=== PATIENT | male | born 1965 | race Hispanic/Latino ===

== ENCOUNTER 2019-07-10 14:48 | Emergency (ER) | payer SELFPAY ==
[2019-07-10 14:55] VITALS: BP 114/75
== END 2019-07-10 15:30 | disposition left against medical advice (07) ==
LOC: ED 14:48
DX: L98.9 Disorder of the skin and subcutaneous tissue, unspecified (principal); Z53.21 Procedure and treatment not carried out due to patient leaving prior to being seen by health care provider

== ENCOUNTER 2019-07-11 06:24 | Emergency (ER) | payer MEDICARE ==
--- NOTE | 2019-07-11 09:11 | Emergency Department Report ---
- General Chief complaint: Extremity Problem,Nontraumatic Stated complaint: TOE PAIN Time Seen by Provider: 07/11/19 08:08 Source: patient Mode of arrival: Ambulatory Limitations: No Limitations - History of Present Illness Initial comments: 53-year-old male presents emerge department complaining of a 2-year history of progressively worsening waxing and waning left toe redness pain and wound. The wound has been swelling and having occasional pain which is been flared over the last week reports no fever chills or sweats no nausea no vomiting no trauma. He also been having some issues with rash and pruritus and due to his previous homeless situation which is now been remedied he is worried of another infestation as it does feel very similar reports no cough, no congestion, no shortness of breath. MD complaint: rash -: Gradual Tetanus Up to Date: yes Location: L foot Severity: mild Quality: dull Consistency: constant Improves with: none Worsens with: none Context: none Treatments Prior to Arrival: none - Related Data Previous Rx's Medication Instructions Recorded Last Taken Type Mupirocin [Bactroban 2%] 1 applic TP TID #1 tube 07/11/19 Unknown Rx Permethrin 5% [Acticin 5% CREAM] 1 applicatio TP ONCE #60 tube 07/11/19 Unknown Rx Sulfamethoxazole/Trimethoprim 1 each PO BID #20 tablet 07/11/19 Unknown Rx [Bactrim DS TAB] Allergies Allergy/AdvReac Type Severity Reaction Status Date / Time latex Allergy Rash Verified 07/10/19 14:52 Abscess Boil HPI - HPI Chief Complaint: Extremity Problem,Nontraumatic Stated Complaint: TOE PAIN Time Seen by Provider: 07/11/19 08:08 Home Medications: Previous Rx's Medication Instructions Recorded Last Taken Type Mupirocin [Bactroban 2%] 1 applic TP TID #1 tube 07/11/19 Unknown Rx Permethrin 5% [Acticin 5% CREAM] 1 applicatio TP ONCE #60 tube 07/11/19 Unknown Rx Sulfamethoxazole/Trimethoprim 1 each PO BID #20 tablet 07/11/19 Unknown Rx [Bactrim DS TAB] Allergies/Adverse Reactions: Allergies Allergy/AdvReac Type Severity Reaction Status Date / Time latex Allergy Rash Verified 07/10/19 14:52 ED Review of Systems ROS: Stated complaint: TOE PAIN Other details as noted in HPI Comment: All other systems reviewed and negative ED Past Medical Hx - Past Medical History Previous Medical History?: No Hx Seizures: Yes (last seizure 06/28/19) Additional medical history: hep C. lupus. hypothyroidism - Surgical History Past Surgical History?: No - Social History Smoking Status: Current Every Day Smoker Substance Use Type: Alcohol - Medications Home Medications: Home Medications Medication Instructions Recorded Confirmed Last Taken Type Mupirocin [Bactroban 2%] 1 applic TP TID #1 tube 07/11/19 Unknown Rx Permethrin 5% [Acticin 5% CREAM] 1 applicatio TP ONCE #60 tube 07/11/19 Unknown Rx Sulfamethoxazole/Trimethoprim 1 each PO BID #20 tablet 07/11/19 Unknown Rx [Bactrim DS TAB] ED Physical Exam - General Limitations: No Limitations - Extremities Exam Extremities exam: Present: tenderness, normal capillary refill. Absent: pedal edema, joint swelling - Expanded Lower Extremity Exam Left 1 - Partial ulcerative and scabbed wound with surrounding cellulitis 2 - Some cellulitis is located to this region with some mild swelling and wound is present 1.5 cm no induration is noted. No lymphangitis. Pulses are 2+ capillary refills are brisk. - Neurological Exam Neurological exam: Present: CN II-XII intact, normal gait ED Course Vital Signs 07/11/19 06:30 Temperature 97.8 F Pulse Rate 79 Respiratory 18 Rate Blood Pressure 116/77 O2 Sat by Pulse 100 Oximetry Critical care attestation.: If time is entered above; I have spent that time in minutes in the direct care of this critically ill patient, excluding procedure time. ED Disposition Clinical Impression: Rash, Cellulitis, toe Disposition: DC-01 TO HOME OR SELFCARE Is pt being admited?: No Does the pt Need Aspirin: No Condition: Stable Instructions: Cellulitis (ED), Scabies (ED) Additional Instructions: Please be sure to follow-up with the log chipper for reevaluation of your toe/foot evolve any infection. Scabies medication was provided per your request. Prescriptions: Permethrin 5% [Acticin 5% CREAM] 1 applicatio TP ONCE #60 tube Sulfamethoxazole/Trimethoprim [Bactrim DS TAB] 1 each PO BID #20 tablet Mupirocin [Bactroban 2%] 1 applic TP TID #1 tube Referrals: [facility] [Provider Group] - 3-5 Days PER العراقي DPM [Staff Physician] - 3-5 Days KIKE SELLERS MD [Staff Physician] - 3-5 Days
[2019-07-11 09:22] VITALS: BP 118/74
== END 2019-07-11 09:21 | disposition home or self-care (01) ==
LOC: ED 06:24
DX: L03.032 Cellulitis of left toe (principal); E03.9 Hypothyroidism, unspecified
CPT/HCPCS: 99282

== ENCOUNTER 2019-07-19 21:36 | Emergency (ER) | payer MEDICARE ==
[2019-07-19 22:22] LABS: Basophils # (Auto) 0.1 K/mm3 (0.0-0.1); Eosinophils # (Auto) 0.2 K/mm3 (0.0-0.4); Eosinophils % (Auto) 2.4 % (0.0-4.3); Hematocrit 42.4 % (35.5-45.6); Lymphocytes # (Auto) 2.3 K/mm3 (1.2-5.4); Lymphocytes % (Auto) 25.7 % (13.4-35.0); Mean Corpuscular HGB Conc 35 % (32-34); Mean Corpuscular Volume 95 fl (84-94); Monocytes # (Auto) 0.6 K/mm3 (0.0-0.8); Monocytes % (Auto) 6.7 % (0.0-7.3); Platelet Count 241 K/mm3 (140-440); Red Blood Count 4.49 M/mm3 (3.65-5.03); Red Cell Distribution Width 13.6 % (13.2-15.2)
[2019-07-19 22:30] LABS: BUN/Creatinine Ratio 20; Blood Urea Nitrogen 18 mg/dL (9-20); Calcium 9.4 mg/dL (8.4-10.2); Hemolysis Index 66
--- NOTE | 2019-07-19 22:53 | Emergency Department Report ---
HPI - HPI HPI: Room 14 The patient is a 53-year-old male present with a chief complaint of stress. Patient says he has "a lot of stuff when you down and I cannot function." Patient denies suicidal homicidal ideation. Patient denies auditory or visual hallucinations. Patient admits to intermittent abuse of methamphetamines and daily abuse of alcohol. Patient states he last consumed alcohol approximately 1 hour ago. Patient states he feels irritable has 0 tolerance. Patient states he was discharged from [place] 1.5 weeks ago <STACIE MORALEZ - Last Filed: 07/20/19 00:08> <MAURICIO MUJICA - Last Filed: 07/20/19 13:32> <DANTE SHEPARD - Last Filed: 07/20/19 15:06> - General Chief Complaint: Psych Time Seen by Provider: 07/19/19 22:35 ED Past Medical Hx - Past Medical History Hx Seizures: Yes (last seizure 06/28/19) Additional medical history: hep C. lupus. hypothyroidism - Surgical History Past Surgical History?: No - Family History Family history: no significant - Social History Smoking Status: Current Every Day Smoker (1 pack/day) Substance Use Type: Alcohol (Daily), Heroin, Marijuana, Methamphetamines <STACIE MORALEZ - Last Filed: 07/20/19 00:08> <MAURICIO MUJICA - Last Filed: 07/20/19 13:32> <DANTE SHEPARD - Last Filed: 07/20/19 15:06> - Medications Home Medications: Home Medications Medication Instructions Recorded Confirmed Last Taken Type Gabapentin [Neurontin] 300 mg PO QAM 07/20/19 07/20/19 Unknown History Gabapentin [Neurontin] 800 mg PO DAILY PRN 07/20/19 07/20/19 Unknown History Levothyroxine [Synthroid] 88 mcg PO QAM 07/20/19 07/20/19 Unknown History carBAMazepine [TEGretol] 200 mg PO DAILY 07/20/19 07/20/19 Unknown History ED Review of Systems ROS: Stated complaint: MH EVAL Other details as noted in HPI Constitutional: no symptoms reported Respiratory: no symptoms reported Endocrine: no symptoms reported Psychiatric: depression. denies: auditory hallucinations, visual hallucinations, homicidal thoughts, suicidal thoughts <GREGErickaSTACIE K - Last Filed: 07/20/19 00:08> ROS: Stated complaint: MH EVAL Other details as noted in HPI <MAURICIO MUJICA. - Last Filed: 07/20/19 13:32> ROS: Stated complaint: MH EVAL Other details as noted in HPI <DANTE SHEPARD CharlotteJoe - Last Filed: 07/20/19 15:06> Physical Exam - Physical Exam Vital Signs: Vital Signs 07/19/19 21:41 Temperature 97.4 F L Pulse Rate 98 H Respiratory 18 Rate Blood Pressure 124/72 O2 Sat by Pulse 98 Oximetry Physical Exam: GENERAL: The patient is well-developed well-nourished male sitting in chair aba earing emotionally distraught. [] HEENT: Normocephalic. Atraumatic. Extraocular motions are intact. Patient has moist mucous membranes. NECK: Supple. Trachea midline CHEST/LUNGS: Clear to auscultation. There is no respiratory distress noted. HEART/CARDIOVASCULAR: Regular. There is no tachycardia. There is no gallop rub or murmur. ABDOMEN: Abdomen is soft, nontender. Patient has normal bowel sounds. There is no abdominal distention. SKIN: There is no rash. There is no edema. There is no diaphoresis. NEURO: The patient is awake, alert, and oriented. The patient is cooperative. The patient has no focal neurologic deficits. The patient has normal speech MUSCULOSKELETAL: There is no evidence of acute injury. <GREGErickaSTACIE Aure - Last Filed: 07/20/19 00:08> - Physical Exam Vital Signs: Vital Signs 07/19/19 07/20/19 07/20/19 21:41 00:16 03:02 Temperature 97.4 F L 97.5 F L Pulse Rate 98 H 95 H Respiratory 18 20 18 Rate Blood Pressure 124/72 Blood Pressure 121/79 [Left] O2 Sat by Pulse 98 99 96 Oximetry 07/20/19 09:17 Temperature 97.5 F L Pulse Rate 87 Respiratory 20 Rate Blood Pressure Blood Pressure 110/72 [Left] O2 Sat by Pulse 98 Oximetry <MAURICIO MUJICA - Last Filed: 07/20/19 13:32> - Physical Exam Vital Signs: Vital Signs 07/19/19 07/20/19 07/20/19 21:41 00:16 03:02 Temperature 97.4 F L 97.5 F L Pulse Rate 98 H 95 H Respiratory 18 20 18 Rate Blood Pressure 124/72 Blood Pressure 121/79 [Left] O2 Sat by Pulse 98 99 96 Oximetry 07/20/19 07/20/19 09:17 13:51 Temperature 97.5 F L 97.7 F Pulse Rate 87 97 H Respiratory 20 18 Rate Blood Pressure Blood Pressure 110/72 109/64 [Left] O2 Sat by Pulse 98 99 Oximetry <DANTE SHEPARD - Last Filed: 07/20/19 15:06> ED Course Vital Signs 07/19/19 21:41 Temperature 97.4 F L Pulse Rate 98 H Respiratory 18 Rate Blood Pressure 124/72 O2 Sat by Pulse 98 Oximetry <STACIE MORALEZ - Last Filed: 07/20/19 00:08> Vital Signs 07/19/19 07/20/19 07/20/19 21:41 00:16 03:02 Temperature 97.4 F L 97.5 F L Pulse Rate 98 H 95 H Respiratory 18 20 18 Rate Blood Pressure 124/72 Blood Pressure 121/79 [Left] O2 Sat by Pulse 98 99 96 Oximetry 07/20/19 09:17 Temperature 97.5 F L Pulse Rate 87 Respiratory 20 Rate Blood Pressure Blood Pressure 110/72 [Left] O2 Sat by Pulse 98 Oximetry <MAURICIO MUJICA - Last Filed: 07/20/19 13:32> Vital Signs 07/19/19 07/20/19 07/20/19 21:41 00:16 03:02 Temperature 97.4 F L 97.5 F L Pulse Rate 98 H 95 H Respiratory 18 20 18 Rate Blood Pressure 124/72 Blood Pressure 121/79 [Left] O2 Sat by Pulse 98 99 96 Oximetry 07/20/19 07/20/19 09:17 13:51 Temperature 97.5 F L 97.7 F Pulse Rate 87 97 H Respiratory 20 18 Rate Blood Pressure Blood Pressure 110/72 109/64 [Left] O2 Sat by Pulse 98 99 Oximetry <DANTE SHEPARD - Last Filed: 07/20/19 15:06> ED Medical Decision Making - Lab Data Result diagrams: 07/19/19 21:51 07/19/19 21:51 Laboratory Tests 07/19/19 07/19/19 07/19/19 21:51 21:51 21:51 WBC RBC Hgb Hct MCV MCH MCHC RDW Plt Count Lymph % (Auto) [place] % (Auto) Eos % (Auto) Baso % (Auto) Lymph # [place] # Eos # Baso # Seg Neutrophils % Seg Neutrophils # Sodium 136 L Potassium 4.2 Chloride 100.5 Carbon Dioxide 18 L Anion Gap 22 BUN 18 Creatinine 0.9 Estimated GFR > 60 BUN/Creatinine Ratio 20 Glucose 99 Calcium 9.4 Total Bilirubin Direct Bilirubin Indirect Bilirubin AST ALT Alkaline Phosphatase Total Protein Albumin Albumin/Globulin Ratio Urine Color Urine Turbidity Urine pH Ur Specific [place] Urine Protein Urine Glucose (UA) Urine Ketones Urine Blood Urine Nitrite Urine Bilirubin Urine Urobilinogen Ur Leukocyte Esterase Urine WBC (Auto) Urine RBC (Auto) Salicylates < 0.3 L Urine Opiates Screen Urine Methadone Screen Acetaminophen 7.0 L Ur Barbiturates Screen Ur Phencyclidine Scrn Ur Amphetamines Screen U Benzodiazepines Scrn Urine Cocaine Screen U Marijuana (THC) Screen Drugs of Abuse Note Plasma/Serum Alcohol 07/19/19 07/19/19 07/19/19 21:51 21:51 21:51 WBC 8.9 RBC 4.49 Hgb 15.0 Hct 42.4 MCV 95 H MCH 33 H MCHC 35 H RDW 13.6 Plt Count 241 Lymph % (Auto) 25.7 [place] % (Auto) 6.7 Eos % (Auto) 2.4 Baso % (Auto) 1.0 Lymph # 2.3 [place] # 0.6 Eos # 0.2 Baso # 0.1 Seg Neutrophils % 64.2 Seg Neutrophils # 5.7 Sodium Potassium Chloride Carbon Dioxide Anion Gap BUN Creatinine Estimated GFR BUN/Creatinine Ratio Glucose Calcium Total Bilirubin 0.50 Direct Bilirubin < 0.2 Indirect Bilirubin 0.3 AST 94 H ALT 73 H Alkaline Phosphatase 68 Total Protein 7.1 Albumin 4.7 Albumin/Globulin Ratio 2.0 Urine Color Urine Turbidity Urine pH Ur Specific [place] Urine Protein Urine Glucose (UA) Urine Ketones Urine Blood Urine Nitrite Urine Bilirubin Urine Urobilinogen Ur Leukocyte Esterase Urine WBC (Auto) Urine RBC (Auto) Salicylates Urine Opiates Screen Urine Methadone Screen Acetaminophen Ur Barbiturates Screen Ur Phencyclidine Scrn Ur Amphetamines Screen U Benzodiazepines Scrn Urine Cocaine Screen U Marijuana (THC) Screen Drugs of Abuse Note Plasma/Serum Alcohol 0.06 07/19/19 07/19/19 23:22 23:22 WBC RBC Hgb Hct MCV MCH MCHC RDW Plt Count Lymph % (Auto) [place] % (Auto) Eos % (Auto) Baso % (Auto) Lymph # [place] # Eos # Baso # Seg Neutrophils % Seg Neutrophils # Sodium Potassium Chloride Carbon Dioxide Anion Gap BUN Creatinine Estimated GFR BUN/Creatinine Ratio Glucose Calcium Total Bilirubin Direct Bilirubin Indirect Bilirubin AST ALT Alkaline Phosphatase Total Protein Albumin Albumin/Globulin Ratio Urine Color Yellow Urine Turbidity Clear Urine pH 5.0 Ur Specific [place] 1.014 Urine Protein <15 mg/dl Urine Glucose (UA) Neg Urine Ketones Neg Urine Blood Neg Urine Nitrite Neg Urine Bilirubin Neg Urine Urobilinogen < 2.0 Ur Leukocyte Esterase Neg Urine WBC (Auto) 1.0 Urine RBC (Auto) 1.0 Salicylates Urine Opiates Screen Presumptive negative Urine Methadone Screen Presumptive negative Acetaminophen Ur Barbiturates Screen Presumptive negative Ur Phencyclidine Scrn Presumptive negative Ur Amphetamines Screen Presumptive positive U Benzodiazepines Scrn Presumptive negative Urine Cocaine Screen Presumptive negative U Marijuana (THC) Screen Presumptive negative Drugs of Abuse Note Disclamer Plasma/Serum Alcohol - Differential Diagnosis Stress, alcohol abuse <STACIE MORALEZ - Last Filed: 07/20/19 00:08> - Lab Data Result diagrams: 07/19/19 21:51 07/19/19 21:51 <MAURICIO MUJICA. - Last Filed: 07/20/19 13:32> - Lab Data Result diagrams: 07/19/19 21:51 07/19/19 21:51 - Medical Decision Making Mr Sawant is a 53-year-old male present with a chief complaint of stress. Patient says he has "a lot of stuff when you down and I cannot function." Patient denies suicidal homicidal ideation. Patient denies auditory or visual hallucinations. Patient admits to intermittent abuse of methamphetamines and daily abuse of alcohol. Patient states he last consumed alcohol approximately 1 hour ago. Patient states he feels irritable has 0 tolerance. Patient states he was discharged from [place] 1.5 weeks ago. Patient has been evaluated by our psychiatric team and advised patient to be discharged home to follow-up as an outpatient. Patient is medically and psychiatrically stable for discharge. Patient advised to return to the ER if he develop any new symptoms. <DANTE SHEPARD - Last Filed: 07/20/19 15:06> Critical care attestation.: If time is entered above; I have spent that time in minutes in the direct care of this critically ill patient, excluding procedure time. <STACIE MORALEZ - Last Filed: 07/20/19 00:08> Critical care attestation.: If time is entered above; I have spent that time in minutes in the direct care of this critically ill patient, excluding procedure time. <MAURICIO MUJICA - Last Filed: 07/20/19 13:32> Critical care attestation.: If time is entered above; I have spent that time in minutes in the direct care of this critically ill patient, excluding procedure time. <DANTE SHEPARD. - Last Filed: 07/20/19 15:06> ED Disposition <STACIE MORALEZ - Last Filed: 07/20/19 00:08> <MAURICIO MUJICA - Last Filed: 07/20/19 13:32> Is pt being admited?: No <DANTE SHEPARD - Last Filed: 07/20/19 15:06> Clinical Impression: Polysubstance abuse, Stress Disposition: DC-01 TO HOME OR SELFCARE Condition: Stable Instructions: Suicide Prevention for Adults (ED) Referrals: PRIMARY CARE,MD [Primary Care Provider] - 3-5 Days
[2019-07-19 23:41] LABS: Alanine Aminotransferase 73 units/L (7-56); Albumin 4.7 g/dL (3.9-5)
[2019-07-19 23:42] LABS: Bilirubin,Urine NEG (Negative); Blood,Urine NEG (Negative); Color,Urine Yellow (Yellow); Protein,Urine <15 mg/dL mg/dL (Negative); Urobilinogen,Urine < 2.0 mg/dL (<2.0)
[2019-07-19 23:45] LABS: Bilirubin,Direct < 0.2 mg/dL (0-0.2)
[2019-07-19 23:51] LABS: Benzodiazepines Screen,Urine PRESUMPTIVE NEGATIVE; Cannabinoid Screen,Urine PRESUMPTIVE NEGATIVE; Cocaine Screen,Urine PRESUMPTIVE NEGATIVE; Methadone Screen,Urine PRESUMPTIVE NEGATIVE; Opiate Screen,Urine PRESUMPTIVE NEGATIVE
[2019-07-19 23:59] LABS: Amphetamine Screen,Urine PRESUMPTIVE POSITIVE
[2019-07-20] MEDS ORDERED: LORazepam 2 MG TAB PO PRN ×2 (06:42)
--- NOTE | 2019-07-20 13:35 | Consultation ---
History of Present Illness - Reason for Consult Consult date: 07/19/19 Reason for consult: Mental Health Evaluation Requesting physician: STACIE MORALEZ - Chief Complaint Chief complaint: Depression - History of Present Psychiatric Illness Per ED Provider: The patient is a 53-year-old male present with a chief complaint of stress. Patient says he has "a lot of stuff when you down and I ca nnot function." Patient denies suicidal homicidal ideation. Patient denies auditory or visual hallucinations. Patient admits to intermittent abuse of methamphetamines and daily abuse of alcohol. Patient states he last consumed alcohol approximately 1 hour ago. Patient states he feels irritable has 0 tolerance. Patient states he was discharged from [place] 1.5 weeks ago. Per [facility] Note: Pt is a 53 yo male presenting to ED for MHE, as pt reported alcohol abuse, depression. During ax, pt presented as with uncooperative behaviors, anxious mood and congruent affect. Pt appeared to be uncooperative and evasive during ax, requiring some prompting to engage. Pt reports alcohol abuse for several weeks, depression. Pt refuses to participate fully in the assessment. Pt denies SI/HI. Pt denies hx of attempts. PT reports hx of Depression, ADD. Pt identified alcohol abuse. Pt reports onset age of 20. Pt refused to discuss duration and current amount of alcohol use. Pt denies drug use or abuse. Pt denies hx of withdrawal symptoms, including seizures. Pt does not present with any active withdrawal symptoms. Pt reports living with a family friend. Pt denies legal issues. Per Psych Provider HPI: Patient is a single disabled homeless 53-year-old male with past medical history of depression and alcohol dependence who presents to the ER with chief complaint of stress and depression. Patient reports he has been drinking beer and tequila in the last 4 days and also suffers from depression. Last alc ohol consumption was an hour prior to ED arrival. Patient states he would like ativan because he is currently having tremors and nausea and headache. He reports he is to be on Klonopin prescribed by another provider in a different state. Patient denies SI HI, also denies auditory and visual hallucination. Patient denies past seizure history from alcohol. Patient did not have tremors on video monitoring or by Nurse, on entrance to room, pt began shaking, this patient is exhibiting drug seeking behavior. Compliance with requested meds may reinforce behavior. Patient was admitted 1.5 weeks ago, and also say she his allergic to Vistaril and Benadryl PAST PSYCHIATRIC HISTORY: Diagnoses: Depression and alcohol use disorder Suicide attempts or Self-harm behavior: None reported Prior psychiatric hospitalizations: None reported Substance Abuse history: Alcohol and Illicit drug use Previous psychiatric medications tried: Klonopin Outpatient treatment: Yes in another state PAST MEDICAL HISTORY: None reported Family Psychiatric History: None reported or documented SOCIAL HISTORY Marital Status: Single Living Arrangements: Homeless Employment Status: Disabled Access to guns/weapons: None reported Education: Not available History of Abuse: None reported Legal History: None reported ROS: Constitutional: Negative for weight loss ENT: Negative for stridor Respiratory: Negative for cough or hemoptysis All other systems reviewed and are negative MENTAL STATUS General Appearance and Behavior: age appropriate, good eye contact, cooperative with questioning and polite/ Cooperation: Cooperative Psychomotor Behavior: Within normal limits Mood: OK Affect and affective range: Congruent with stated mood Thought Process: Fluent/Logical and Goal-directed Thought Content: Deneies AH and VU and Paranoia Speech: Normal volume and Regular rate and rhythm Intellectual Functioning: Average Suicidal Ideation: Denies SI Homicidal Ideation: Denies HI Impulse Control: intact Insight and Judgment: Normal insight and poor judgment Memory: Normal Attention: Normal Orientation: alert and oriented Diagnosis - Psychiatric problem (1) Alcohol use disorder, severe, dependence Current Visit: Yes Status: Acute (2) Methamphetamine use disorder, severe Current Visit: Yes Status: Acute (3) Drug-seeking behavior Current Visit: Yes Status: Acute RECOMMENDATIONS MEDICATIONS: Continue current home meds Risks, benefits and alternatives of medications discussed with the patient, questions answered and consent obtained from patient. PSYCHOTHERAPY: Supportive psychotherapy provided MEDICAL: Per primary team SCHOOL BUSINESS MANAGER: Not indicated DISPOSITION: No Acute inpatient psychiatric hospitalization indicated LEGAL STATUS: 1013 rescinded FOLLOW-UP: Will sign OFF Thank you for the consult. Please contact with any questions and/or concerns. Medications and Allergies Allergies Allergy/AdvReac Type Severity Reaction Status Date / Time latex Allergy Rash Verified 07/10/19 14:52 Home Medications Medication Instructions Recorded Confirmed Last Taken Type Gabapentin [Neurontin] 300 mg PO QAM 07/20/19 07/20/19 Unknown History Gabapentin [Neurontin] 800 mg PO DAILY PRN 07/20/19 07/20/19 Unknown History Levothyroxine [Synthroid] 88 mcg PO QAM 07/20/19 07/20/19 Unknown History carBAMazepine [TEGretol] 200 mg PO DAILY 07/20/19 07/20/19 Unknown History Active Meds: Active Medications Lorazepam (Ativan) 2 mg PO Q1HR PRN PRN Reason: CIWA-Ar 8-15 Last Admin: 07/20/19 06:51 Dose: 2 mg Documented by: Lorazepam (Ativan) 4 mg PO Q1HR PRN PRN Reason: CIWA-Ar 16-25 Mental Status Exam - Vital signs Last Vital Signs Temp 97.5 F L 07/20/19 09:17 Pulse 87 07/20/19 09:17 Resp 20 07/20/19 09:17 BP 110/72 07/20/19 09:17 Pulse Ox 98 07/20/19 09:17 Results Result Diagrams: 07/19/19 21:51 07/19/19 21:51 Abnormal lab results 07/19/19 07/19/19 07/19/19 Range/Units 21:51 21:51 21:51 MCV (84-94) fl MCH (28-32) pg MCHC (32-34) % Sodium 136 L (137-145) mmol/L Carbon Dioxide 18 L (22-30) mmol/L AST (5-40) units/L ALT (7-56) units/L Salicylates < 0.3 L (2.8-20.0) mg/dL Acetaminophen 7.0 L (10.0-30.0) ug/mL 07/19/19 07/19/19 Range/Units 21:51 21:51 MCV 95 H (84-94) fl MCH 33 H (28-32) pg MCHC 35 H (32-34) % Sodium (137-145) mmol/L Carbon Dioxide (22-30) mmol/L AST 94 H (5-40) units/L ALT 73 H (7-56) units/L Salicylates (2.8-20.0) mg/dL Acetaminophen (10.0-30.0) ug/mL All other labs normal. Assessment and Plan - Psychiatric problem (1) Alcohol use disorder, severe, dependence Current Visit: Yes Status: Acute (2) Methamphetamine use disorder, severe Current Visit: Yes Status: Acute (3) Drug-seeking behavior Current Visit: Yes Status: Acute
[2019-07-20 13:53] VITALS: BP 109/64
== END 2019-07-20 15:37 | disposition home or self-care (01) ==
LOC: ED 21:36 → EEVIPCON 21:36 → ED 07-20 15:37
DX: F43.9 Reaction to severe stress, unspecified (principal); E03.9 Hypothyroidism, unspecified; F17.210 Nicotine dependence, cigarettes, uncomplicated; F12.10 Cannabis abuse, uncomplicated; F15.10 Other stimulant abuse, uncomplicated; Z91.041 Radiographic dye allergy status; Z79.899 Other long term (current) drug therapy
CPT/HCPCS: 36415; 80048; 80076; 80307; 80320; 81001; 85025; G0480

== ENCOUNTER 2019-07-21 03:17 | Emergency (ER) | payer MEDICARE ==
[2019-07-21 03:27] VITALS: BP 145/89
--- NOTE | 2019-07-21 08:31 | Emergency Department Report ---
ED Rash HPI - HPI Chief Complaint: Extremity Injury, Lower Stated Complaint: SCABIES Time Seen by Provider: 07/21/19 07:30 Duration: 1 Day Location: Neck, Upper Extremities, Other (ear) Suspected Cause: Other (scaibes) Rash Symptoms: Yes Itching, No Facial Swelling, No Tongue/Oral Swelling, No Breathing Difficulties, No Choking Sensation, No Wheezing/Dyspnea, No Peeling, No Blistering, No Fever, No Lightheaded, No Malaise, No Myalgias Severity: mild Other History: This is a 53-year-old male nontoxic, well nourished in appearance, no acute signs of distress presents to the ED with c/o of rash to bilateral fingers, ear fold, and neck area x1 day. Hx of scabies and stated symptoms are similar. Patient states it is itching and redness. Patient denies any drooling, hoarseness or facial swelling. Patient denies any trauma. She denies any fever, chills, nausea, vomiting, chest pain, shortness of breath, headache, stiff neck, numbness or tingling. ED Review of Systems ROS: Stated complaint: SCABIES Other details as noted in HPI Constitutional: denies: chills, fever Eyes: denies: eye pain, eye discharge, vision change ENT: denies: ear pain, throat pain Respiratory: denies: cough, shortness of breath, wheezing Cardiovascular: denies: chest pain, palpitations Endocrine: no symptoms reported Gastrointestinal: denies: abdominal pain, nausea, diarrhea Genitourinary: denies: urgency, dysuria Musculoskeletal: denies: back pain, joint swelling, arthralgia Skin: rash. denies: lesions Neurological: denies: headache, weakness, paresthesias Psychiatric: denies: anxiety, depression Hematological/Lymphatic: denies: easy bleeding, easy bruising ED Past Medical Hx - Past Medical History Previous Medical History?: Yes Hx Seizures: Yes (last seizure 06/28/19) Additional medical history: hep C. lupus. hypothyroidism - Surgical History Past Surgical History?: No - Social History Smoking Status: Current Every Day Smoker Substance Use Type: None, Marijuana, Methamphetamines - Medications Home Medications: Home Medications Medication Instructions Recorded Confirmed Last Taken Type Gabapentin [Neurontin] 300 mg PO QAM 07/20/19 07/20/19 Unknown History Gabapentin [Neurontin] 800 mg PO DAILY PRN 07/20/19 07/20/19 Unknown History Levothyroxine [Synthroid] 88 mcg PO QAM 07/20/19 07/20/19 Unknown History carBAMazepine [TEGretol] 200 mg PO DAILY 07/20/19 07/20/19 Unknown History Permethrin 5% [Acticin 5% CREAM] 1 applicatio TP ONCE #1 tube 07/21/19 Unknown Rx Rash Exam - Exam General: Vital signs noted. No distress. Alert and acting appropriately. HEENT: No Periorbital Edema, No Conjuctival Injection, No Chemosis, No Perioral Edema, No Tongue Edema, No Uvular Edema, No Compromised Airway, No Drooling Lungs: Yes Good Air Exchange (Normal Breath Sounds), No Wheezes, No Ronchi, No Stridor, No Cough, No Labored Respirations, No Retractions, No Use of Accessory Muscles, No Other Abnormal Lung Sounds Heart: Yes Regular, No Murmur Skin: Yes Maculopapular Rash (bilatearl finger, right earlobe), No Urticarial Rash, No Morbilliform rash, No Bulla(e), No Excoriations, No Weeping, No Tenderness, No Erythema, No Edema, No Encrustations, No Other Other: Positive: Abdomen Normal, Neurologic Normal, Musculoskeletal Normal ED Course Vital Signs 07/21/19 03:22 Temperature 98.0 F Pulse Rate 102 H Respiratory 18 Rate Blood Pressure 145/89 O2 Sat by Pulse 98 Oximetry - Reevaluation(s) Reevaluation #1: 07/21/19 08:31 Patient is speaking in full sentences with no signs of distress noted. ED Medical Decision Making - Medical Decision Making 53-year-old male that presents with scabies. Patient stable and was examined by me. Patient be treated with permethrin. Patient was instructed to follow-up with a primary care doctor in 3-5 days or if symptoms worsen and continue return to emergency room as soon as possible. At time of discharge, the patient does not seem toxic or ill in appearance. No acute signs of distress noted. Patient agrees to discharge treatment plan of care. No further questions noted by the patient. Critical care attestation.: If time is entered above; I have spent that time in minutes in the direct care of this critically ill patient, excluding procedure time. ED Disposition Clinical Impression: Scabies Disposition: DC-01 TO HOME OR SELFCARE Is pt being admited?: No Does the pt Need Aspirin: No Condition: Stable Instructions: Scabies (ED) Additional Instructions: Follow-up with a primary care doctor in 3-5 days or if symptoms worsen and continue return to emergency room as soon as possible. Prescriptions: Permethrin 5% [Acticin 5% CREAM] 1 applicatio TP ONCE #1 tube Referrals: PRIMARY MD NATHANIEL [Primary Care Provider] - 3-5 Days SERGEI RAI MD [Staff Physician] - 3-5 Days [facility] [Provider Group] - 3-5 Days
== END 2019-07-21 08:45 | disposition home or self-care (01) ==
LOC: ED 03:17
DX: B86 Scabies (principal); E03.9 Hypothyroidism, unspecified; F17.200 Nicotine dependence, unspecified, uncomplicated; F15.20 Other stimulant dependence, uncomplicated; F12.90 Cannabis use, unspecified, uncomplicated; Z79.899 Other long term (current) drug therapy; Z86.69 Personal history of other diseases of the nervous system and sense organs; Z91.040 Latex allergy status
CPT/HCPCS: 99281

== ENCOUNTER 2019-07-21 20:21 | Emergency (ER) | payer MEDICARE ==
[2019-07-21 20:28] VITALS: BP 151/90
--- NOTE | 2019-07-21 20:34 | Emergency Department Report ---
Chief Complaint: Skin Rash Stated Complaint: ACTIVE SCABIES,PAIN ON RIGHT FOOT Time Seen by Provider: 07/21/19 20:33 - HPI History of Present Illness: 53-year-old male presents to the emergency room complaining of scabies. Patient was seen here earlier today by 1 of the providers in [facility] and was discharged home with a prescription for permethrin. Patient review of chart shows that patient is positive for amphetamines. Patient has not filled his prescription for his medication. - Exam Vital Signs: Vital Signs 07/21/19 20:26 Temperature 97.7 F Pulse Rate 109 H Respiratory 18 Rate Blood Pressure 151/90 O2 Sat by Pulse 98 Oximetry Physical Exam: Alert and oriented x3 no acute distress Amatory without difficulty. MSE screening note: Focused history and physical exam performed. Due to findings the following was ordered: 53-year-old male presents to the emergency room complaining of scabies. Patient was seen here earlier today by 1 of the providers in [facility] and was discharged home with a prescription for permethrin. Patient review of chart shows that patient is positive for amphetamines. Patient has not filled his pre scription for his medication. Patient needs to fill his prescription for his medication that he was discharged with earlier today. ED Disposition for MSE Clinical Impression: Methamphetamine use disorder, severe, Scabies Disposition: Z-07 MED SCREENING EXAM-LEFT Is pt being admited?: No Does the pt Need Aspirin: No Condition: Stable Additional Instructions: Fill your prescription for your scabies that was given to you earlier today.
== END 2019-07-21 20:35 | disposition left against medical advice (07) ==
LOC: ED 20:21
DX: M79.671 Pain in right foot (principal); Z53.21 Procedure and treatment not carried out due to patient leaving prior to being seen by health care provider
CPT/HCPCS: 99281